=== PATIENT | female | born 1945 | race Caucasian/White ===

== ENCOUNTER → 2016-12-24 | Outpatient (CLI) | payer MEDICARE, OTHER | LOC: MAMO 07:40 | DX: Z12.31 Encounter for screening mammogram for malignant neoplasm of breast (principal) | CPT/HCPCS: G0202 ==

== ENCOUNTER → 2020-09-17 | Outpatient (CLI) | payer MEDICARE ==
[~2020-09-17] MED LIST: NAPROSYN500 MG PO; REGLAN10 MG PO
== END ==
LOC: KOH-I 15:52
DX: R05 Cough (principal); M54.5 Low back pain; M25.552 Pain in left hip; M51.36 Other intervertebral disc degeneration, lumbar region; M47.816 Spondylosis without myelopathy or radiculopathy, lumbar region; M16.12 Unilateral primary osteoarthritis, left hip
CPT/HCPCS: 71046; 72100; 73502

== ENCOUNTER 2020-09-26 22:39 | Emergency (ER) | payer MEDICARE ==
[2020-09-27 01:04] LABS: HEMOGLOBIN 13.1 gm/dl (12.3-15.3); RED BLOOD COUNT 4.16 M/UL (4.00-5.10); WHITE BLOOD COUNT 12.7 K/UL (4.5-11.0)
[2020-09-27 01:28] LABS: BUN/CREATININE RATIO 43 (0-10)
== END 2020-09-27 05:35 | disposition home or self-care (01) ==
LOC: ER1 22:39
PROVIDERS: Family Medicine
DX: R07.9 Chest pain, unspecified (principal); Z88.1 Allergy status to other antibiotic agents; Z88.2 Allergy status to sulfonamides
CPT/HCPCS: 71046; 80053; 82550; 82553; 83874; 84484; 85025; 93005; 99285

== ENCOUNTER 2021-01-21 15:28 | Emergency (ER) | payer MEDICARE ==
[2021-01-21 16:44] LABS: HEMOGLOBIN 12.6 gm/dl (12.3-15.3); RED BLOOD COUNT 4.04 M/UL (4.00-5.10); WHITE BLOOD COUNT 4.6 K/UL (4.5-11.0)
[2021-01-21 17:12] LABS: BUN/CREATININE RATIO 20 (0-10)
== END 2021-01-21 18:55 | disposition home or self-care (01) ==
LOC: ER1 15:28
PROVIDERS: Emergency Medicine
DX: R51.9 Headache, unspecified (principal); I12.9 Hypertensive chronic kidney disease with stage 1 through stage 4 chronic kidney disease, or unspecified chronic kidney disease; N18.9 Chronic kidney disease, unspecified; Z87.440 Personal history of urinary (tract) infections; Z85.3 Personal history of malignant neoplasm of breast
CPT/HCPCS: 70450; 71045; 80053; 81001; 82550; 82553; 83874; 84484; 85025; 87086; 93005; 96374; 99284; J0360

== ENCOUNTER → 2021-04-03 | Outpatient (CLI) | payer MEDICARE | LOC: LBRF 15:28 | DX: N39.0 Urinary tract infection, site not specified (principal) | CPT/HCPCS: 87077; 87086; 87186 ==

== ENCOUNTER → 2021-04-28 | Outpatient (CLI) | payer MEDICARE | LOC: EXRD 09:50 | DX: M43.02 Spondylolysis, cervical region (principal); M25.512 Pain in left shoulder; R93.7 Abnormal findings on diagnostic imaging of other parts of musculoskeletal system; M47.22 Other spondylosis with radiculopathy, cervical region | CPT/HCPCS: 72040; 73030 ==

== ENCOUNTER → 2021-05-12 | Outpatient (CLI) | payer MEDICARE | LOC: HEART 5 05-08 09:15 | DX: R53.83 Other fatigue (principal); R68.89 Other general symptoms and signs; M25.512 Pain in left shoulder; R06.02 Shortness of breath; R94.39 Abnormal result of other cardiovascular function study | CPT/HCPCS: 78452; A9502; J2785 ==

== ENCOUNTER → 2021-07-31 | Outpatient (CLI) | payer MEDICARE | LOC: KOH-I 08:15 | DX: R41.3 Other amnesia (principal); R41.82 Altered mental status, unspecified; R90.82 White matter disease, unspecified | CPT/HCPCS: 70551 ==

== ENCOUNTER → 2021-09-01 | Outpatient (CLI) | payer MEDICARE ==
[~2021-09-01] VITALS: Ht 157.5 cm; Wt 59.0 kg
== END ==
LOC: OPSV 11:58
DX: K21.9 Gastro-esophageal reflux disease without esophagitis (principal); M54.9 Dorsalgia, unspecified; I95.9 Hypotension, unspecified; R11.2 Nausea with vomiting, unspecified; R19.7 Diarrhea, unspecified; R42 Dizziness and giddiness
CPT/HCPCS: 96360; 96361; 96365; 96375; C9113; J1956; J2405; J7030

== ENCOUNTER → 2021-09-08 | Outpatient (CLI) | payer MEDICARE | LOC: HEART 5 13:00 | DX: R06.02 Shortness of breath (principal); R00.0 Tachycardia, unspecified; I34.0 Nonrheumatic mitral (valve) insufficiency; I51.7 Cardiomegaly | CPT/HCPCS: 93306 ==

== ENCOUNTER → 2021-10-14 | Outpatient (CLI) | payer MEDICARE | LOC: CT 15:30 | DX: R07.9 Chest pain, unspecified (principal); R06.02 Shortness of breath; R79.1 Abnormal coagulation profile | CPT/HCPCS: 71275; Q9967 ==

== ENCOUNTER 2022-02-22 10:22 | Observation (INO) | payer MEDICARE ==
[~2022-02-22] VITALS: Ht 157.5 cm; Wt 59.0 kg
[2022-02-22 12:22] LABS: HEMOGLOBIN 13.7 gm/dl (12.3-15.3); RED BLOOD COUNT 4.46 M/UL (4.00-5.10); WHITE BLOOD COUNT 17.6 K/UL (4.5-11.0)
[2022-02-22 12:45] LABS: BUN/CREATININE RATIO 15 (0-10)
[2022-02-22] MEDS ORDERED: ZETIA10 MG PO (15:38)
[2022-02-22] MEDS ORDERED: LISINOPRIL20 MG PO (15:38)
[2022-02-22] MEDS ORDERED: ESOMEPRAZOLE MA20 MG PO (15:38)
[2022-02-22] MEDS ORDERED: ANASTROZOLE1 MG PO (15:39)
[2022-02-22] MEDS ORDERED: DULOXETINE HCL30 MG PO (15:39)
[2022-02-22] MEDS ORDERED: PROTONIX40 MG PO (15:41)
[2022-02-22] MEDS ORDERED: OXYBUTYNIN CHLO15 MG PO (15:41)
[2022-02-22] MEDS ORDERED: ESCITALOPRAM OX10 MG PO (15:42)
[2022-02-22] MEDS ORDERED: METOPROLOL TART25 MG PO (15:43)
[2022-02-22] MEDS ORDERED: NITROGLYCERIN0.4 MG SL (15:44)
[2022-02-22] MEDS ORDERED: BACLOFEN10 MG PO (15:44)
[2022-02-22] MEDS ORDERED: ASPIRIN EC81 MG PO (15:45)
[2022-02-23] MEDS ORDERED: HYDROCODON-ACE1 EAC4 PO (07:38)
[2022-02-23] MEDS ORDERED: COLACE100 MG PO (07:38)
== END 2022-02-23 13:23 | disposition home or self-care (01) ==
LOC: ER1 10:22 → CDU 14:17 → MED SURG 4 14:17
PROVIDERS: Nurse Practitioner; ADMIT Surgery
PROC: 0DTJ4ZZ Resection of Appendix, Percutaneous Endoscopic Approach (ICD-10-PCS; principal; 2022-02-22 16:00)
DX: K35.31 Acute appendicitis with localized peritonitis and gangrene, without perforation (principal); K21.9 Gastro-esophageal reflux disease without esophagitis; I12.9 Hypertensive chronic kidney disease with stage 1 through stage 4 chronic kidney disease, or unspecified chronic kidney disease; N18.30 Chronic kidney disease, stage 3 unspecified; Z79.899 Other long term (current) drug therapy; I25.10 Atherosclerotic heart disease of native coronary artery without angina pectoris; Z85.3 Personal history of malignant neoplasm of breast; Z88.2 Allergy status to sulfonamides; Z79.82 Long term (current) use of aspirin
CPT/HCPCS: 71045; 80053; 81001; 82550; 82553; 83605; 83690; 84484; 85025; 85652; 86140; 87040; 87086; 93005; 94760; 96361; 96374; 96375; 96376; 99285; G0378; J0295; J1100; J1650; J2001; J2270; J2405; J2543; J2704; J3010; Q9967